=== PATIENT | female | born 1970 | race Two or more races ===

== ENCOUNTER 2021-10-01 16:54 | Emergency (ER) | payer MEDICAID, OTHER ==
[~2021-10-01] VITALS: Ht 157.5 cm; Wt 96.2 kg
[2021-10-01 17:21] VITALS: BP 163/88
[2021-10-01] MEDS ORDERED: GABA-532 PO (17:57)
[2021-10-01] MEDS ORDERED: ACYC-108 PO (17:57)
[2021-10-01] MEDS ORDERED: DIPH25CA83 PO (17:59)
[2021-10-01] MEDS ORDERED: GABAPENTIN 100 MG CAPSULE PO ONE (18:00)
[2021-10-01] MEDS ORDERED: GABAPENTIN 300 MG CAPSULE ONE (18:03)
--- NOTE | 2021-10-01 18:15 | NUR ---
Patient discharged to home in stable condition. Written and verbal after care instructions given. Patient verbalizes understanding of instruction.
[2021-10-01] MEDS ORDERED: DIPH50CA4 PO (19:09)
== END 2021-10-01 18:16 | disposition home or self-care (01) ==
LOC: ER 16:59
DX: B02.9 Zoster without complications (principal); I10 Essential (primary) hypertension; E11.9 Type 2 diabetes mellitus without complications